=== PATIENT | male | born 1990 | race African-American/Black ===

== ENCOUNTER 2023-06-14 20:42 | Emergency (ER) | payer BC, SELFPAY ==
[2023-06-14] VITALS (7 sets, daily range): BP systolic 150–171; BP diastolic 78–92; PULSE 94–112; RESP 15–20; TEMP 36.5; O2SAT 96–100
--- NOTE | ~2023-06-14 | XR_ITS ---
EXAMINATION: XR chest 2V Exam Date/Time: 06/14/2023 21:20 CDT HISTORY: chest pain LEFT SIDE AFTER EATING THIS EVENING Comparison: None. RESULT: Lines, tubes, and devices: None. Lungs and pleura: Clear. Cardiomediastinal silhouette: Normal. Other: No acute osseous or upper abdominal finding. IMPRESSION: No acute cardiopulmonary process. Reviewed, dictated and finalized at location K.
--- NOTE | 2023-06-14 20:43 | ECG_ITS ---
Measurements Intervals Brickeys Rate: 117 P: 47 AL: 160 QRS: 30 QRSD: 90 T: -6 QT: 302 QTc: 422 Interpretive Statements SINUS TACHYCARDIA POSSIBLE LEFT ATRIAL ENLARGEMENT [-0.1mV P WAVE IN V1/V2] POSSIBLE ANTERIOR MYOCARDIAL INFARCTION , OF INDETERMINATE AGE [30 ms Q WAVE IN V3/V4, OR R < 0.2 mV IN V4] NONSPECIFIC T-WAVE ABNORMALITY ABNORMAL ECG NO PREVIOUS ECG AVAILABLE FOR COMPARISON Electronically Signed On 06-15-2023 8:49:43 CDT by Aime Barreto M.D.
--- NOTE | 2023-06-14 21:09 | ED.ARRPALP ---
HPI - Arrhythmia/Palpitations General Chief Complaint: Arrhythmia/Palpitations Stated Complaint: Rapid HR, tingling to left side Time Seen by Provider: 06/14/23 21:09 Related Data Home Medications Medication Instructions Recorded Confirmed finasteride 1 mg tablet 1 mg PO DAILY 08/26/21 08/26/21 multivitamin (Daily Multi-Vitamin 1 tablet PO DAILY 08/26/21 08/26/21 tablet) omega 0-dgr-pxg-fish oil 60 mg-90 1 cap PO DAILY 08/26/21 08/26/21 mg-500 mg capsule (Fish Oil) Allergies Allergy/AdvReac Type Severity Reaction Status Date / Time No Known Allergies Allergy Verified 06/14/23 20:57 [facility] Past Medical History Medical History (Updated 08/26/21 @ 09:39 by Suzy Maria, CLINICAL NURSING ASSISTANT) Allergies Dysphagia Male pattern baldness Family History Family History Grandparent Diabetes mellitus Hypertension Cerebrovascular accident Social History Social History (Updated 08/26/21 @ 09:14 by Suzy Maria, CLINICAL NURSING ASSISTANT) Social History: Single, no children. 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 He plans to move back to [place] in October/2021 to be closer to his family. Smoking status: Never smoker Alcohol intake: current Alcohol use details: 1 time monthly Substance use: never Living arrangements: with friend(s) Occupation/Education: occupation Gender identity (if verbalized by the patient): Male Agree to blood products: Yes Course Vital Signs Vital signs: Vital Signs Temperature 36.5 C 06/14/23 20:51 Pulse Rate 112 H 06/14/23 20:51 Respiratory Rate 20 06/14/23 20:51 Blood Pressure 171/92 H 06/14/23 20:51 Pulse Oximetry 100 06/14/23 20:51 Oxygen Delivery Room Air 06/14/23 20:51 Temperature 36.5 C 06/14/23 20:51 Pulse Rate 112 H 06/14/23 20:51 Respiratory Rate 20 06/14/23 20:51 Blood Pressure 171/92 H 06/14/23 20:51 Pulse Oximetry 100 06/14/23 20:51 Oxygen Delivery Room Air 06/14/23 20:51 Discharge Plan Discharge Prescriptions: No Action multivitamin [Daily Multi-Vitamin] Tablet 1 tablet PO DAILY finasteride 1 mg tablet 1 mg PO DAILY omega 3-peq-fxn-fish oil [Fish Oil] 60-90-500 mg capsule 1 cap PO DAILY omeprazole 20 mg capsule,delayed release(DR/EC) 20 mg PO DAILY Qty: 90 0RF Follow-up/Referrals: Dmitry,Holly Avery CLINICAL NURSING ASSISTANT [Primary Care Provider] -
--- NOTE | 2023-06-14 21:13 | ED.GENADULT ---
HPI - General Adult General Chief complaint: Arrhythmia/Palpitations Stated complaint: Rapid HR, tingling to left side Time Seen by Provider: 06/14/23 21:05 Source: patient and family Mode of arrival: ambulatory Limitations: no limitations History of Present Illness HPI narrative: 32 years old male came to the emergency room with his family complaining of sudden onset of pinching like feeling at the left lower chest started 1 hour after eating, associated with numbness of the left upper extremity and shoulder blade and left lower extremity also hot feeling going down from the top of the back all the way down to his back. Patient had similar symptoms in the past numerous of time, had nerve conduction test, brachial plexus abnormality, rehabilitation, improvement with intermittent left leg. Patient is telling me that his iWatch showed heart rate of 170. At that time he denies any shortness of breath, lightheadedness, headache or near syncope or syncope. Currently patient feeling anxious. Related Data Home Medications Medication Instructions Recorded Confirmed finasteride 1 mg tablet 1 mg PO DAILY 08/26/21 08/26/21 multivitamin (Daily Multi-Vitamin 1 tablet PO DAILY 08/26/21 08/26/21 tablet) omega 7-dpq-ugg-fish oil 60 mg-90 1 cap PO DAILY 08/26/21 08/26/21 mg-500 mg capsule (Fish Oil) Allergies Allergy/AdvReac Type Severity Reaction Status Date / Time No Known Allergies Allergy Verified 06/14/23 20:57 Review of Systems Review of Systems: All systems reviewed & are unremarkable except as noted in HPI and below PMFSH Past Medical History Medical History Allergies Dysphagia Male pattern baldness Family History Family History Grandparent Diabetes mellitus Hypertension Cerebrovascular accident Social History Social History Social History: Single, no children. 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 He plans to move back to [place] in October/2021 to be closer to his family. Smoking status: Never smoker Alcohol intake: current Alcohol use details: 1 time monthly Substance use: never Living arrangements: with friend(s) Occupation/Education: occupation Gender identity (if verbalized by the patient): Male Agree to blood products: Yes Exam Narrative: General appearance: Well-developed, well-nourished, anxious, intermittent sighing Skin: Normal color Head: Normocephalic, nontraumatic Eyes: Clear conjunctiva ENT: Oropharynx normal, ears normal, nose normal Neck: Supple, nontender Chest and respiratory: Airway patent, no respiratory distress, no accessory muscle use Heart: Regular rate/rhythm Abdomen: Soft, nontender, no organomegaly, quiet bowel sounds Vascular: Normal peripheral pulses, normal capillary refill. Musculoskeletal: Normal range of motion, nontender back Neurologic: Alert and oriented ?3, [employer] is normal as tested, no gross motor deficit Course Vital Signs Vital signs: Vital Signs Temperature 36.5 C 06/14/23 20:51 Pulse Rate 112 H 06/14/23 20:51 Respiratory Rate 06/14/23 20:51 Blood Pressure 171/92 H 06/14/23 20:51 Pulse Oximetry 100 06/14/23 20:51 Oxygen Delivery Room Air 06/14/23 20:51 Temperature 36.5 C 06/14/23 20:51 Pulse Rate 107 H 06/14/23 21:15 Respiratory Rate 20 06/14/23 20:51 Blood Pressure 171/92 H 06/14/23 20:51 Pulse Oximetry 100 06/14/23 20:51 Oxygen Delivery Room Air 06/14/23 20:51 Medical Decision Making MDM Narrative Medical decision making
[2023-06-14 21:42] LABS: Basophils Percent Auto 0.6 % (0.2-1.2); Eosinophils Absolute Auto 0.2 K/mm3 (0-0.3); Eosinophils Percent Auto 2.7 % (0-4.4); Hematocrit 47.9 % (42.0-52.0); Immature Granulocyte Absolute 0.01 K/mm3 (0.00-0.031); Immature Granulocyte Percent A 0.2 % (0-0.5); Lymphocytes Percent Auto 49.6 % (18.3-44.2); Mean Corpuscular HGB Conc 33.4 g/dl (32-36); Mean Corpuscular Hemoglobin 30.5 pg (26-34); Mean Corpuscular Volume 91.2 fl (80-100); Mean Platelet Volume 10.2 fl (7.4-10.4); Monocytes Absolute Auto 0.4 K/mm3 (0.1-0.6); Neutrophils Absolute Auto 2.5 K/mm3 (1.3-6.7); Neutrophils Percent Auto 39.9 % (45.5-73.1); Platelet Count Result 200 k/mm3 (150-375); Red Blood Count 5.25 M/mm3 (4.6-6.20); Red Cell Distribution Width 12.4 % (11.5-14.5); White Blood Count 6.3 K/mm3 (4.5-10.0)
[2023-06-14 21:52] LABS: Alanine Aminotransferase 15 U/L (6-50); Albumin Level 4.5 g/dL (3.5-5.1); Alkaline Phosphatase 51 U/L (38-126); Anion Gap 6 mmol/L (8-16); Aspartate Amino Transferase 27 U/L (17-59); Bilirubin,Total 0.8 mg/dL (0.2-1.3); Blood Urea Nitrogen 17 mg/dL (9-20); Calcium 9.4 mg/dL (8.4-10.2); Carbon Dioxide 29 mmol/L (22-30); Chloride 102 mmol/L (98-107); Estimated CRCL calculation 95 ml/min; Estimated Glomerular Filt Rate > 60; Glucose 179 mg/dL (65-110); Potassium 3.8 mmol/L (3.4-5.0); Sodium 137 mmol/L (137-145)
[2023-06-14 22:04] LABS: Troponin I < 0.012 ng/mL (0.000-0.034)
[2023-06-14 22:14] LABS: Amphetamine Screen Urine Negative (Negative); Barbiturate Screen Urine Negative (Negative); Benzodiazepines Screen Urine Negative (Negative); Cannabinoid Screen Urine Negative (Negative); Cocaine Screen Urine Negative (Negative); Methadone Screen Urine Negative (Negative); Opiate Screen Urine Negative (Negative); Phencyclidine Screen Urine Negative (Negative)
[2023-06-14] MEDS: LORazepam INJ (*CRX) 2 MG/ML VIAL 1 MG IV PUSH (22:18)
== END 2023-06-14 23:01 | disposition home or self-care (01) ==
PROVIDERS: Emergency Provider Emergency Medicine; PCP Nurse Practitioner Family
DX: R00.2 Palpitations (principal); Z79.899 Other long term (current) drug therapy
CPT/HCPCS: 36415; 71046; 80053; 80307; 84443; 84484; 85025; 93005; 96374; 99284; J2060